=== PATIENT | female | born 1985 | race Caucasian/White ===

== ENCOUNTER 2024-01-15 08:29 | Emergency (ER) | payer SELFPAY ==
[~2024-01-15] VITALS: Ht 157.5 cm; Wt 104.5 kg
[2024-01-15 09:23] LABS: COLLECTION METHOD CLEAN CATCH
[2024-01-15 09:37] LABS: BASO # 0.1 K/mm3 (0.0-0.2); BASO % 0.5 % (0.0-2.0); EOS # 0.3 K/mm3 (0.0-0.7); EOS % 2.7 % (0.0-4.0); GRAN # 7.9 K/mm3 (1.4-6.5); GRAN % 75.5 % (42.2-75.2); HEMOGLOBIN 14.9 g/dl (12.5-16.0); LYMPH # 1.6 K/mm3 (1.2-3.4); LYMPH % 15.7 % (20.0-51.0); MEAN CELL VOLUME 89 fl (80.0-100.0); MEAN CORPUSCULAR HEMOGLOBIN 31 pg (27-31); MEAN CORPUSCULAR HGB CONC 35 g/dl (33.0-37.0); MONO # 0.6 K/mm3 (0.1-0.6); MONO % 5.4 % (1.7-9.3); PLATELET COUNT 273 K/mm3 (130-400); RED BLOOD COUNT 4.83 M/mm3 (4.10-5.30); REDCELL DISTRIBUTION WIDTH-CV 11.8 % (11.5-14.5)
[2024-01-15 09:41] LABS: TRICYCLIC ANTIDEPRESS URINE NEGATIVE (NEGATIVE)
[2024-01-15 09:46] LABS: ALANINE AMINOTRANSFERASE 15 U/L (0-55); ALBUMIN 3.9 g/dL (3.5-5.0); ALKALINE PHOSPHATASE 55 U/L (40-150); ANION GAP 11 mmol/L (7-16); AST,SGOT 17 U/L (5-34); BILIRUBIN,TOTAL 0.5 mg/dL (0.2-1.2); BLOOD UREA NITROGEN 13 mg/dL (7-19); CALCIUM 9.4 mg/dL (8.4-10.2); CHLORIDE 107 mEq/L (98-107); CREATININE, serum 0.88 mg/dL (0.57-1.11); GLUCOSE 97 mg/dL (70-99); POTASSIUM 3.6 mEq/L (3.5-4.5); SODIUM 139 mEq/L (136-145)
[2024-01-15 09:48] LABS: ALCOHOL(ethanol),MEDICAL < 10 mg/dL (0-10); SALICYLATE < 5.0 mg/dL (15.0-30.0)
[2024-01-15 09:54] LABS: PH 5.5 (5.0-8.5); URINE APPEARANCE TURBID (CLEAR/HAZY); URINE BLOOD TRACE (NEGATIVE); URINE COLOR Dark Yellow (YELLOW); URINE GLUCOSE NEGATIVE (NEGATIVE); URINE KETONE 2+ (NEGATIVE); URINE NITRATE NEGATIVE (NEGATIVE); URINE PROTEIN(semi-quant) 1+ (NEGATIVE)
[2024-01-15 10:01] LABS: URINE BACTERIA MANY /hpf (NONE SEEN); URINE WBC 0-2 /hpf (0-2)
[2024-01-15] MEDS ORDERED: ZOLOFT 100MG100 MG PO (10:05)
[2024-01-15] MEDS ORDERED: ABILIFY5 MG PO (10:06)
[2024-01-15] MEDS ORDERED: VYVANSE70 MG PO (10:07)
[2024-01-16 08:55] VITALS: BP 126/58; PULSE 87; TEMP 98.4
== END 2024-01-16 10:16 ==
LOC: COL.ER 08:29
PROVIDERS: Emergency Medicine
DX: R45.851 Suicidal ideations (principal); F32.A Depression, unspecified; F60.3 Borderline personality disorder; Z79.899 Other long term (current) drug therapy